=== PATIENT | female | born 1965 | race Caucasian/White ===

== ENCOUNTER 2017-02-13 17:13 | Emergency (ER) | payer OTHER ==
[~2017-02-13] VITALS: Ht 157.5 cm; Wt 69.0 kg
[2017-02-13 17:18] VITALS: Ht 157.5 cm; Wt 69.0 kg
[2017-02-13] MEDS ORDERED: AMOX1TAB9 PO (18:54)
[2017-02-13] MEDS ORDERED: ACET325T33 PO (18:54)
[2017-02-13] MEDS ORDERED: DIPHTH/TET/ACEL PERTUSS (ADULT) 0.5 ML VIAL IM* ONE (19:00)
[2017-02-13 19:23] VITALS: BP 133/72; PULSE 59; RESP 18; TEMP 98.3
--- NOTE | 2017-02-13 21:07 | ERD ---
ER Documentation Chief Complaint Date/Time DATE: 02/13/17 TIME: 21:05 Chief Complaint dog bite x 2 days HPI 51-year-old female presents to the emergency department with a dog bite to her right lateral knee from 2 days prior to being seen. 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 Patient denies any fever, increased tenderness. She denies taking any medications for this. ROS All systems reviewed and are negative except as per history of present illness. Medications Home Meds Active Scripts Acetaminophen* (Tylenol*) 325 Mg Tablet, 2 TAB PO Q4 Y for PAIN AND OR ELEVATED TEMP, #20 TAB Prov:JOHN CHAPMAN PA-C 02/13/17 Amoxicillin/Potassium Clav (Amox-Clav 500-125 mg Tablet) 500-125 mg Tab, 1 TAB PO BID for 10 Days, TAB Prov:JOHN CHAPMAN PA-C 02/13/17 Allergies Allergies: Coded Allergies: No Known Allergy (Unverified , 02/13/17) PMhx/Soc History of Surgery: No Anesthesia Reaction: No Hx Neurological Disorder: No Hx Respiratory Disorders: No Hx Cardiac Disorders: No Hx Psychiatric Problems: No Hx Miscellaneous Medical Probl: No Hx Alcohol Use: No Hx Substance Use: No Hx Tobacco Use: No Smoking Status: Never smoker Physical Exam Vitals Vital Signs Date Time Temp Pulse Resp B/P Pulse Ox O2 Delivery O2 Flow Rate FiO2 02/13/17 19:23 98.3 59 18 133/72 98 Room Air 02/13/17 17:18 98.2 73 18 130/95 98 Physical Exam General: WD/WN, in no apparent distress, non-toxic appearing HENT: NC/AT Eyes: Conjunctiva normal Neck: Supple Pulm: Clear to auscultation, normal labored breathing; no wheezing/rales/ rhonchi heard CV: Good capillary refill GI: Non-distended, no guarding Back: No masses Ext: No clubbing, cyanosis, or edema Neuro: Moves on all fours Skin: Dog bite rice on the right lateral knee, no evidence of induration, purulence or discharge. Psych: Normal mood Results 24 hrs Current Medications Medications (Trade) Dose Ordered Sig/Marily Route PRN Reason Start Time Stop Time Status Last Admin Dose Admin Diphtheria/ Tetanus/Acell Pertussis (Adacel) 0.5 ml ONCE ONCE IM* 02/13/17 19:00 02/13/17 19:01 DC 02/13/17 19:07 Procedures/MDM This is a 51-year-old female presenting to the emergency department complaining of a dog bite to her right lateral knee from 2 days prior to being seen. There was no evidence of cellulitis. Patient needs to get updated on tetanus, therefore she was given to her in the ED. Since there was no evidence of cellulitis, I discussed the patient that is unnecessary for her to take any antibiotics at this time. Discussed return to the ER for any worsening symptoms. She understands and agrees with plan Departure Diagnosis: Primary Impression: Dog bite Condition: Stable Patient Instructions: Dog Bite Referrals: DOCTOR,NOT ON STAFF Additional Instructions: Regrese a estas instalaciones si no se mejora baylee esperbamos o baylee le dijimos. JOHN CHAPMAN PA-C Feb 13, 2017 21:07
== END 2017-02-13 19:27 | disposition home or self-care (01) ==
LOC: FTE 17:13
DX: S81.051A Open bite, right knee, initial encounter (principal); W54.0XXA Bitten by dog, initial encounter; Y92.9 Unspecified place or not applicable; Z23 Encounter for immunization
CPT/HCPCS: 90471; 90715; Z7502